=== PATIENT | female | born 1950 | race Caucasian/White ===

== ENCOUNTER 2016-10-25 08:51 | Inpatient (IN) ==
[2016-10-25] MEDS ORDERED: TYLENOL PO PRN (09:18)
[2016-10-25] MEDS ORDERED: ZOFRAN IV PRN (09:18)
[2016-10-25] MEDS ORDERED: CARDIZEM 100 MG/NS 100 MG/100 ML IVPB IV SCH (09:21)
[2016-10-25 09:38] LABS: HEMOGLOBIN 17.3 g/dL (12.0-16.0); MCH 29.8 PG (27-31); MCHC 35.3 g/dL (33-37); MCV 84.5 FL (81-99); MPV 11.3 FL (7.4-10.4); RBC 5.8 XMIL (4.2-5.4)
--- NOTE | 2016-10-25 09:40 | ED EKG INTERP ---
This chart was entered by Tori Blanco Scribe, acting as scribe for Silvestre Larose MD. EKG Interpretation - EKG Time of EKG reading by physician:: 09:02 EKG Read and Signed by:: Silvestre Larose EKG Interpretation (*Must complete 3 of following elements*): Abnormal Rate: 133 Rhythm: atrial fibrillation with rapid ventricular response Comments: rightward axis; nonspecific ST and T wave abnormality. Attestation - Physician/ JORGE Attestation Patient care was provided by Advanced Practice Provider:: No The physician spent face to face time with patient:: Yes Advanced Practice Provider documentation review:: Supervising physician onsite and consulted in the evaluation and care of this patient. The physician did have a face to face encounter with the patient. This chart was documented by the indicated scribe, (Tori Blnaco Scribe) and accurately reflects the services I performed and decisions made by me, Silvestre Larose MD, as attested by the provider's signature.
[2016-10-25 10:31] LABS: ALBUMIN 4.2 g/dL (3.5-5.0); CALCIUM 9.6 mg/dL (8.8-10.2); POTASSIUM 3.3 mmol/L (3.5-5.1); TOTAL BILIRUBIN 0.5 mg/dL (0.20-1.00); TOTAL PROTEIN 7.6 g/dL (6.3-8.3)
[2016-10-25] MEDS ORDERED: CARDIZEM IV ONE (10:39)
--- NOTE | 2016-10-25 11:06 | EKG Report ---
Test Performed on : 10/25/2016 09:02:43 AM Test Reason : sob Blood Pressure : / mmHG Vent. Rate : 133 BPM Atrial Rate : 129 BPM P-R Int : 000 ms QRS Dur : 082 ms QT Int : 280 ms P-R-T Axes : 000 093 053 degrees QTc Int : 416 ms Atrial fibrillation. with rapid ventricular response. Rightward axis Nonspecific ST and T wave abnormality Abnormal ECG When compared with ECG of 09-MAR-2016 12:50, Atrial fibrillation. has replaced Sinus rhythm. Vent. rate has increased BY 71 BPM Nonspecific T wave abnormality now evident in Lateral leads Unconfirmed Result
--- NOTE | 2016-10-25 11:21 | PROVIDER DOCUMENTATION ---
This chart was entered by Tori Blanco Scribe, acting as scribe for Silvestre Larose MD. HPI-Respiratory General - General Chief Complaint: Shortness of Breath Stated Complaint: SOB/COPD Time Seen by Provider: 10/25/16 09:06 Source: patient Allergies/Adverse Reactions: Patient Allergies Allergy/AdvReac Type Severity Reaction Status Date / Time No Known Allergies Allergy Verified 10/25/16 09:01 Home Medications: Home Medication List Medication Instructions Recorded Confirmed Last Taken Type Venlafaxine [Effexor] 37.5 mg PO QHS 04/19/15 01/30/16 01/30/16 17:00 History Albuterol Sulfate Inhaler 2 puff INH Q6H PRN PRN #1 inhaler 04/20/15 01/30/16 Unknown Rx [Ventolin Hfa] Codeine/Promethazine [Phenergan 10 ml PO TID PRN PRN #120 ml 01/30/16 Unknown Rx with Codeine] Doxycycline 100 mg PO BID #14 tablet 01/30/16 Unknown Rx Nicotine Patch [Nicoderm Patch] 21 mg TD DAILY PRN #30 patch.td24 01/30/16 Unknown Rx Prednisone 40 mg PO DAILY #10 tablet 01/30/16 Unknown Rx Hydrochlorothiazide 25 mg PO DAILY #30 tablet 03/09/16 Unknown Rx Venlafaxine HCl [Effexor Xr] 150 mg PO DAILY #30 cap.er.24h 09/05/16 Unknown Rx Amoxicillin [Amoxil] 500 mg PO BID #14 capsule 09/19/16 Unknown Rx - History of Present Illness-Resp Nature of Presenting Problem: Pt is 66 year old female presents to the ED with shortness of breath. Pt states shortness of breath has been present since last night. Pt states she is a chronic smoker. Pt states hx of COPD. Pt states home nebulizer. 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 Pt denies abdominal pain. Pt denies fever Quality of Pain: reports: tightness Severity in ED: reports: mild Onset/Duration: reports: last night Timing: reports: still present Exposure: reports: unknown cause Cough Quality/Degree: reports: no cough Current Respiratory Medication Therapy: Initiated see nurses note Modifying Factors: improves with: nothing Associated Symptoms: reports: heart racing, shortness of breath. denies: chest pain/soreness, cough, dizziness, earache, facial pain, fever/chills, flu-like symptoms, headache, hurts to breathe, hyperventilating, lightheadedness, muscle/ bodyaches, nasal congestion, nasal drainage, sinus pain, short of breath, sore throat, sweaty, wheezing Similar Symptoms Previously?: Yes (present since last night ) Recently seen or treated by another doctor?: No Review of Systems - Adult - REVIEW OF SYSTEMS - ADULT Constitutional: denies: chills, fever Eyes: denies: decreased vision, blurred vision, double vision Ears, Nose, Mouth & Throat: denies: ear pain, nose pain, throat pain Cardiovascular: reports: irregular heart rate (tachy). denies: chest pain, heart murmur, orthopnea Respiratory: reports: shortness of breath. denies: cough, wheezing Gastrointestinal: denies: abdominal pain, diarrhea, nausea, vomiting Genitourinary: denies: dysuria, flank pain, hematuria Musculoskeletal: denies: bone pain, joint pain, neck pain Integumentary: denies: hives, itching, rash Neurological: denies: dizziness/vertigo, headache/migraines, numbness, seizure, syncope Psychiatric: denies: anxiety, depression, suicidal thoughts Endocrine: reports: no symptoms reported Hematologic/Lymphatic: reports: no symptoms reported Allergic/Immunologic: reports: no symptoms reported All Other Systems: Reviewed and Negative Past History - Adult - PAST MEDICAL HISTORY-ADULT Review of Records: reports: Nursing Assessment Review, Medications Reviewed, Social history reviewed & non-contributory. Major Childhood Illnesses: reports: denies history Cardiovascular: reports: cardiac disease, HTN, hyperlipidemia, IA (4) Respiratory: reports: asthma, COPD Gastrointestinal: reports: denies history Obstetrical/Gynecological: reports: denies history Genitourinary: reports: denies history Musculoskeletal: reports: denies history Neurological: reports: CVA, Seizures/Epilepsy, TIA Psychiatric: reports: anxiety, depression Endocrine/Immune: reports: denies history Other Conditions: reports: denies history - PRIOR SURGERIES/PROCEDURES Surgical/Procedure History: reports: cardiac stent, - PRIOR HOSPITALIZATIONS Prior Hospitalizations: reports: for similar symptoms - IMMUNIZATION STATUS Childhood Immunizations: See Nurse Assessment Flu Vaccine: See Nurse Assessment - FAMILY HISTORY Family History: CAD over 55 yo - SOCIAL HISTORY Smoking: cigarettes, greater than 1 pack/day Provider spent 3-5 mins advising pt. on dangers of tobacco.: Discussed manners to quit use, and f/u contacts for add'l counseling. Substance Use: denies Living Situation: family Physical Exam-General - PHYSICAL EXAM-ADULT Initial Vital Signs Reviewed: Yes - CONSTITUTIONAL General Appearance: appears well, alert, no apparent distress. negative: lethargic, slow to respond - EYES Eyes: PERRL/EOMI, pink conjunctivae. negative: pale conjunctivae, sunken eyes - HEAD, EARS, NOSE, MOUTH & THROAT HENMT: normocephalic/atraumatic, moist mucous membranes, normal ENT inspection. negative: angioedema, hearing deficit - NECK Neck: non-tender, normal inspection. negative: lymphadenopathy, tender lateral - RESPIRATORY Respiratory: chest non-tender, decreased breath sounds, increased rate. negative: crackles, rhonchi - CARDIOVASCULAR Cardiovascular: normal peripheral pulses, tachycardia. negative: systolic murmur - GASTROINTESTINAL (ABDOMEN) Abdominal Exam: normal bowel sounds, non tender, soft. negative: distended, rebound - LYMPHATIC Lymphatic: no adenopathy. negative: enlargement, streaking - MUSCULOSKELETAL Back Exam: normal inspection. negative: ecchymosis, lordosis Extremity: normal range of motion, normal inspection. negative: deformity, erythema - SKIN Integumentary: normal color, normal turgor, warm/dry, other (generalized psoriasis). negative: ecchymosis, erythema - NEUROLOGIC Neurologic: grossly normal. negative: aphasia, facial droop - PSYCHIATRIC Psych/Mental Status: normal mood/affect, oriented x 3. negative: paranoid, tearful Progress - PLAN OF CARE/RESULTS Progress/Plan/Lab Results: Vital Signs - 8 hr 10/25/16 08:54 10/25/16 09:04 Temperature 96.9 F L Pulse Rate 130 H Respiratory Rate 28 H Blood Pressure 119/074 Laboratory Results - last 24 hr 10/25/16 10/25/16 10/25/16 09:15 09:15 09:15 WBC 7.44 RBC 5.80 H Hgb 17.3 H Hct 49.0 H MCV 84.5 MCH 29.8 MCHC 35.3 RDW Std Deviation 12.7 Plt Count 178 MPV 11.3 H Sodium 138 Potassium 3.3 L Chloride 97 L Carbon Dioxide 28 Anion Gap 13 BUN 21 Creatinine 1.2 H Estimated GFR/1.73 m2 45 BUN/Creatinine Ratio 18 Glucose 105 H Calculated Osmolality 279 Calcium 9.6 Magnesium Total Bilirubin 0.50 AST 24 ALT 19 Alkaline Phosphatase 126 H Creatine Kinase 100 Troponin T Total Protein 7.6 Albumin 4.2 Globulin 3.0 Albumin/Globulin Ratio 1.0 TSH 10/25/16 10/25/16 10/25/16 09:15 09:15 09:15 WBC RBC Hgb Hct MCV MCH MCHC RDW Std Deviation Plt Count MPV Sodium Potassium Chloride Carbon Dioxide Anion Gap BUN Creatinine Estimated GFR/1.73 m2 BUN/Creatinine Ratio Glucose Calculated Osmolality Calcium Magnesium 2.0 Total Bilirubin AST ALT Alkaline Phosphatase Creatine Kinase Troponin T < 0.010 Total Protein Albumin Globulin Albumin/Globulin Ratio TSH 0.37 Orders Category Date Time Status Admit - [facility] - [facility] Routine AdmDCTranf 10/25/16 09:18 Ordered Activity - Up with Assistance ORDERED Care 10/25/16 09:18 Active Daily Weights QDAY ASSESS Care 10/25/16 09:18 Active Intake and Output-Strict ORDERED Care 10/25/16 09:18 Active Notify MD if DIRECTED Care 10/25/16 09:18 Active Old records/chart to unit .From other facility Care 10/25/16 09:18 Active Vital Signs Order Q 4-HR ASSESS Care 10/25/16 09:18 Active Z-Document. for Tele Applied ORDERED Care 10/25/16 09:20 Active Heart Healthy Diet Diet 10/25/16 09:19 Active CHEST-2 VIEWS [RAD] Stat Exams 10/25/16 09:19 Taken CBC WITH NO DIFF [HEME] Routine Lab 10/26/16 06:00 Ordered CBC WITH NO DIFF [HEME] Stat Lab 10/25/16 09:15 Completed CK PROFILE [SP CHEM] Q8H Lab 10/25/16 09:15 Completed CK PROFILE [SP CHEM] Q8H Lab 10/25/16 17:30 Ordered CK PROFILE [SP CHEM] Q8H Lab 10/26/16 01:30 Ordered COMPREHENSIVE METABOLIC PANEL [CHEM] Routine Lab 10/26/16 06:00 Ordered COMPREHENSIVE METABOLIC PANEL [CHEM] Stat Lab 10/25/16 09:15 Completed LIPID PROFILE W/CALC LDL [LIPIDS] Routine Lab 10/26/16 06:00 Ordered MAGNESIUM [CHEM] Routine Lab 10/25/16 09:15 Completed TROPONIN T Q8H Lab 10/25/16 09:15 Completed TROPONIN T Q8H Lab 10/25/16 17:30 Ordered TROPONIN T Q8H Lab 10/26/16 01:30 Ordered TSH Routine Lab 10/25/16 09:15 Completed Acetaminophen [Tylenol] Med 10/25/16 09:18 Active 650 mg PO Q6H PRN PRN Aspirin Med 10/25/16 09:30 Active 81 mg PO DAILY Diltiazem 100 mg/Ns [Cardizem 100 mg/Ns] Med 10/25/16 09:21 Active 100 mg in 100 ml IV Per Protocol Enoxaparin [Lovenox] Med 10/25/16 09:30 Active 40 mg SUBQ Q24H Ondansetron [Zofran] Med 10/25/16 09:18 Active 4 mg IV Q4H PRN PRN Zolpidem [Ambien] Med 10/25/16 09:18 Active 5 mg PO HS PRN PRN Oxygen Device Routine Oth 10/25/16 09:18 Active Pulse Oximetry Routine Oth 10/25/16 09:18 Active Telemetry [OM.EQ] Routine Oth 10/25/16 09:18 Active Limited Echocardiogram Routine Ther 10/25/16 09:18 Ordered Transfer/Admit Order [TRANSFER] Routine Transfer 10/25/16 09:23 Ordered Result Diagrams: 10/25/16 09:15 10/25/16 09:15 - XRAY 1 XRAY Study: Chest Impression: Normal XRAY Interpretation: negative per Dr. Larose Departure - Departure Date of Disposition Decision: 10/25/16 Time of Disposition Decision: 10:03 DIAGNOSIS: Afib Disposition: ADMITTED INPATIENT 09 Certified Medical Emergency: Emergent Condition: Stable - Critical Care Note This patient required my direct & personal management of CC.: Yes Total Time (mins): 30 Critical Care Statement: This patient required my direct personal management to treat or rule out processes, the absence of which, could potentiallly result in sudden, clinically significant life or limb threatening deterioration. Attestation - Physician/ JORGE Attestation Patient care was provided by Advanced Practice Provider:: No The physician spent face to face time with patient:: Yes Advanced Practice Provider documentation review:: Supervising physician onsite and consulted in the evaluation and care of this patient. The physician did have a face to face encounter with the patient. This chart was documented by the indicated scribe, (Tori Blanco, David) and accurately reflects the services I performed and decisions made by me, Silvestre Larose MD, as attested by the provider's signature.
[2016-10-25] MEDS: LOVENOX SUBQ SCH (11:30)
--- NOTE | 2016-10-25 11:46 | HISTORY AND PHYSICAL ---
CHIEF COMPLAINT: Shortness of breath, elevated heart rate. HISTORY OF PRESENT ILLNESS: The patient is a 66-year-old female who presented to [facility] ER secondary to increased heart rate, increased shortness of breath and dyspnea on exertion. Notes that the symptoms continued to worsen and have been going on for less than a day. Notes that her heart rate has been racing. She states that she was told recently that her blood pressure was elevated and was given medication, but stated she felt nauseated on it, so she has taken it. She also has not followed up in the office to get the medication changed. The medicine apparently was started on her last ER visit in September. ALLERGIES: No known drug allergies. MEDICATIONS: Effexor, albuterol. She has recently been on doxycycline, hydrochlorothiazide 25, presumably this is the medication that she stopped. REVIEW OF SYSTEMS: Patient notes she has recently had tooth pain and this is the reason for her ER visit and antibiotics. She stopped her blood pressure medication that was stopped in the ER because she felt nauseated and "did not feel right." Notes that she has pain is better, however now she is having chest pain, palpitations, and skipped heartbeat and states that her heart rate has been racing. She denies any fevers or chills. Denies dysuria, frequency, urgency. Denies any polyuria or polydipsia. Denies any skin rashes weight loss or weight gain. Denies any melena or hematochezia. PAST MEDICAL HISTORY: COPD, hypertension, hyperlipidemia. She has had an PR in the past,a history of seizures, anxiety, depression, CVA. Patient denies a history of atrial fibrillation although the record notes in 2014, she was admitted to the hospital for atrial fibrillation. She has had cardiac stenting in the past. FAMILY HISTORY: Noncontributory. SOCIAL HISTORY: Patient lives at home. She continues to smoke approximately a pack a day. Denies any alcohol use or other illicit drug use. PHYSICAL EXAMINATION: VITAL SIGNS: Reviewed. Blood pressure is stable at 120s to 130s systolic, heart rate is elevated at 130s to 140 and irregular, respiratory 18. GENERAL: Patient is awake and alert. She is currently in mild distress secondary to her heart rate. She is in no respiratory distress. She is awake, alert, oriented and pleasant to talk with. NECK: Supple. CV: Regular rate. CHEST: Relatively clear. ABDOMEN: Soft. EXTREMITIES: Moves all extremities. NEUROLOGIC: No focal changes. SKIN: Warm, dry with no rashes. LABS: Currently pending. ASSESSMENT: 1. Atrial fibrillation with rapid ventricular response. 2. Hypertension with medical noncompliance. 3. Chronic tobacco abuse. 4. Chronic anxiety and depression. 5. Known coronary artery disease. 6. History of chronic obstructive pulmonary disease. 7. History of cerebrovascular accident. 8. History of seizures. PLAN: We will admit the patient to the hospital. Discussed with her the perils of smoking as well as ways to stop. Discussed with her atrial fibrillation and treatment. We will rule out for an PR, placed in the ICU on Cardizem drip. Further orders as needed. cc: Angel Carlos MD
[2016-10-25] MEDS: ASPIRIN PO SCH (12:00)
--- NOTE | 2016-10-25 13:21 | Diag Imaging Result Doc PS360 ---
EXAM: CHEST-2 VIEWS INDICATION: AMI/Chest Pain TECHNIQUE: 2 views COMPARISON: 03/09/2016 FINDINGS: There are couple nodules projecting of the left lower lung zone that appear stable. The largest projects behind the left heart border. The lungs are clear, otherwise. There is no discrete pleural fluid collection or pneumothorax. The cardiomediastinal silhouette and central vasculature are grossly unremarkable. IMPRESSION: Nonspecific stable left lower lung zone nodules as described. Continued surveillance is recommended. Electronically signed by Pk Delacruz 10/25/2016 1:19 PM
[2016-10-25] MEDS ORDERED: KLOR-CON PO ONE (17:48)
[2016-10-25] MEDS: ATIVAN IV PRN (18:03)
[2016-10-26 03:55] LABS: HEMATOCRIT 45.5 % (37.0-47.0); HEMOGLOBIN 15.8 g/dL (12.0-16.0); MCH 29.8 PG (27-31); MCHC 34.7 g/dL (33-37); MCV 85.7 FL (81-99); MPV 10.7 FL (7.4-10.4); RBC 5.31 XMIL (4.2-5.4)
[2016-10-26 04:34] LABS: AGAP 14; ALBUMIN 3.9 g/dL (3.5-5.0); ALKALINE PHOSPHATASE 106 U/L (32-104); BUN 27 mg/dL (8-22); CHLORIDE 103 mmol/L (98-107); COSMO 284; GOT 13 U/L (10-30); GPT 13 U/L (10-36); HDL 58 mg/dL (45-65); LDL 139 mg/dL; POTASSIUM 4.4 mmol/L (3.5-5.1); SODIUM 139 mmol/L (136-145); TCO2 23 mmol/L (25-35); TOTAL PROTEIN 6.4 g/dL (6.3-8.3); TRIGLYCERIDES 94 mg/dL (35-135); VLDL 19 mg/dL
[2016-10-26] MEDS: LOVENOX SUBQ SCH (09:12)
[2016-10-26] MEDS: ASPIRIN PO SCH (09:12)
[2016-10-26] MEDS: ATIVAN IV PRN (12:40)
[2016-10-26] MEDS: CARDIZEM PO SCH ×2 (12:40→20:55)
[2016-10-26] MEDS ORDERED: NORCO-7.5 PO PRN (15:15)
--- NOTE | 2016-10-26 15:35 | ECHO REPORT ---
ORDER DATE: 10/25/2016 INDICATION: Atrial fibrillation. FINDINGS: 1. The right atrium appears normal in size. 2. Mild tricuspid regurgitation. RV systolic pressure of 26. This was on a measurement on an extremely poor jet of tricuspid regurgitation. 3. Normal RV size and systolic function. 4. No significant pulmonic insufficiency. 5. Mild left atrial enlargement at 4.6 cm. 6. No evidence of mitral valve prolapse. There does appear to be some restriction in motion of the mitral leaflets. Mild mitral regurgitation is noted. Measurement of the mitral gradient demonstrates a peak of 6.8 with a mean of 2.5. The valve area by pressure half-time was denoted at 1 cm2 with a planimetry area of 1.2. Previously in April 2014 the peak and mean gradient across the valve was 22 and 14 with a valve area measured between 1.2 and 1.4. Patient may need further evaluations of the mitral valve considering the degree of stenosis noted 2 years ago and some difficulty in measurement at this point. 7. Left ventricle appears normal in size. Normal LV wall thicknesses with a posterior and interventricular septal wall thickness 1.1 cm each. I believe the LV systolic function is mildly reduced on the order of 45%. This is somewhat difficult measurement to make considering the patient's atrial fibrillation. 8. Aortic valve appears to open reasonably well on 2-dimensional imaging. Peak and mean gradient across valve are 20 and 10. I do not believe there is any significant degree of aortic stenosis. There is mild aortic insufficiency. 9. Aorta appears normal visualized segments. 10. No pericardial effusion seen. cc: MD Angel Flores MD
--- NOTE | 2016-10-26 19:17 | PROGRESS NOTE ---
DATE: 10/26/2016 SUBJECTIVE: Patient denies any current complaints. States that she is feeling much better. Still having some palpitations but nothing like she was when she came to the hospital. Denies any chest pain. Denies any shortness of breath, GI or issues. OBJECTIVE: Vital Signs: Reviewed. Heart rate is 70 but irregular. Blood pressure is stable. She is afebrile. Respiratory 20. General: Patient is awake, alert. She is in no respiratory distress. Pleasant to talk with. Neck: Supple. Cardiovascular: Irregular rhythm but rate controlled. Abdomen: Soft. Extremities: Moves all extremities. Chest: Clear. Neurologic: No changes. DIAGNOSTIC DATA: CBC and CMP reviewed. Troponin and CPKs are negative. ASSESSMENT: Atrial fibrillation with rapid ventricular response. Currently still in atrial fibrillation but rate controlled. We will stop Cardizem drip. Place her on p.o. Cardizem 30 three times a day. We will transfer to the floor. Hopefully home in the a.m. on Cardizem CD 120. cc: Angel Carlos MD
[2016-10-26] MEDS: EFFEXOR XR PO SCH (20:55)
[2016-10-26] MEDS: AMBIEN PO PRN (22:32)
--- NOTE | 2016-10-27 03:37 | EKG Report ---
Test Performed on : 10/27/2016 03:06:23 AM Test Reason : cp Blood Pressure : / mmHG Vent. Rate : 134 BPM Atrial Rate : 104 BPM P-R Int : 000 ms QRS Dur : 082 ms QT Int : 270 ms P-R-T Axes : 000 083 -35 degrees QTc Int : 403 ms Atrial fibrillation. with rapid ventricular response. Abnormal QRS-T angle, consider primary T wave abnormality Abnormal ECG No previous ECGs available Confirmed by Silvestre Larose MD ([id number]) on 11/12/2016 7:07:02 PM
[2016-10-27] MEDS ORDERED: CARDIZEM 100 MG/NS 100 MG/100 ML IVPB IV SCH (04:01)
[2016-10-27] MEDS: CARDIZEM 100 MG/NS 100 MG/100 ML IVPB ONE ×2 (04:20→04:26)
[2016-10-27] MEDS: CARDIZEM PO SCH ×3 (05:16→20:17)
[2016-10-27] MEDS: ASPIRIN PO SCH (08:43)
[2016-10-27] MEDS: LOVENOX SUBQ SCH ×2 (08:43→18:26)
[2016-10-27] MEDS ORDERED: HYDROCHLOROTHIAZIDE PO SCH (09:00)
[2016-10-27] MEDS ORDERED: LOVENOX SUBQ SCH (15:00)
[2016-10-27] MEDS ORDERED: CARDIZEM PO ONE (15:00)
[2016-10-27 15:41] LABS: INR 0.91 (0.86-1.15)
--- NOTE | 2016-10-27 16:25 | PROGRESS NOTE ---
DATE: 10/27/2016 SUBJECTIVE: The patient continues having palpitations. They have decreased. She denies any chest pain, shortness of breath, syncope, dizziness. OBJECTIVE: Vital Signs: Blood pressure is 106/87 with a heart rate of 94, respirations are 18, temperature is 98 degrees with oxygen saturations of 98-100% on 2 L nasal cannula. General: Ms Yost is sitting up in bed awake and alert in no distress. Cardiovascular : Irregularly irregular rhythm with rate controlled. Pulmonary: Breath sounds are clear with no increased work of breathing noted. Gastrointestinal: Abdomen soft, nontender, nondistended with bowel sounds in all 4 quadrants. Extremities: No clubbing, cyanosis, or edema. Calves are nontender. Pulses are palpable x4. ASSESSMENT: Atrial fibrillation with rapid ventricular response. She is currently in atrial fibrillation but with rate controlled. We will continue her current regimen. Cardizem has been increased to 60 mg every 8 hours per cardiology Dictated by MARY Mckeon for Angel Carlos MD cc: MARY Mckeon MD [facility]
--- NOTE | 2016-10-27 18:52 | CONSULTATION ---
DATE OF CONSULTATION: 10/27/2016 IMPRESSION: 1. Newly diagnosed atrial fibrillation with rapid ventricular rate. Rate still mild-to- moderately elevated despite current diltiazem. 2. Rheumatic mitral valve disease. A. Status post previous mitral valve balloon valvuloplasty December 2003. B. At least moderate to severe mitral stenosis currently. 3. Atherosclerotic coronary disease. Patient is status post previous non ST elevation myocardial infarction in August 2011 and subsequently underwent angioplasty/stenting of right coronary artery with drug-eluting stent. 4. Dyslipidemia. 5. Chronic ongoing cigarette use at a rate of 1-1/2 pack cigarettes per day. 6. Depression. 7. Previous cerebrovascular accident August 2012 according to records. 8. Poor compliance with cardiology follow up. RECOMMENDATIONS: 1. Augment rate control with increase in diltiazem orally. 2. Anticoagulate. Will initiate Lovenox and transition to warfarin. 3. The patient ultimately may benefit from more definitive evaluation of her mitral valve disorder with transesophageal echocardiography and possibly right and left heart catheterization. 4. Smoking cessation strongly advised. HISTORY: This 66-year-old white female with past history of rheumatic mitral valve disorder, atherosclerotic coronary disease, dyslipidemia and chronic ongoing cigarette use, as well as previous cerebrovascular accident, was admitted over this past weekend with acute dyspnea and palpitations. She was found to be in atrial fibrillation with rapid ventricular rate. She has been started on diltiazem, which has improved, but not completely controlled her heart rate. She denies any chest pain. She has had tendency for exertional shortness of breath and orthopnea for the past year. She has not seen her hospital aide in almost 2 years. She abruptly started having suddenly worse exertional dyspnea where she could barely walk across the room with associated tachy palpitations. There has been no peripheral swelling. She still smokes a pack and a half of cigarettes per day. She is not aware of any previous atrial fibrillation or palpitations in the past. PAST MEDICAL HISTORY: 1. Rheumatic mitral valve disorder as outlined above. 2. Atherosclerotic coronary disease as outlined above. 3. Dyslipidemia. 4. Depression. 5. Previous cerebrovascular accident involving right hemisphere in August 2012. ALLERGIES: She is allergic or intolerant to beta blockers, which reportedly cause wheezing. MEDICATIONS: Prior to admission as listed. It is noteworthy that she has not been on anti- platelet therapy nor anticoagulation prior to admission. SOCIAL HISTORY: She is . She smokes a pack and a half of cigarettes per day. FAMILY HISTORY: Positive for coronary disease. REVIEW OF SYSTEMS: Pulmonary noteworthy for exertional dyspnea and orthopnea. There has been some chronic nonproductive cough. Gastrointestinal: Negative. Constitutional: Negative. Remainder review of systems negative/noncontributory with 14 total systems reviewed. PHYSICAL EXAMINATION: General: Reveals a pleasant, older, white female, in no distress. Vital signs: Heart rate 110 to 120 beats per minute with ECG monitor showing atrial fibrillation and rapid ventricular rate. Blood pressure 104/82. Oxygen saturation 95%. HEENT Examination: Extraocular movements appear intact. Mucous membranes are moist. Neck: Supple without discernible jugular distention. Chest: Clear to auscultation with somewhat diminished breath sounds diffusely. Cardiac Exam: Reveals an irregular rate and rhythm without appreciable murmur or gallop. Abdomen: Soft, nontender. Bowel sounds are normal. Extremities: Without edema. Neurologic Exam: Reveals her to be alert and fully oriented. Speech is fluent. She moves all 4 extremities equally well. Skin: Warm and dry. Psych exam reveals her mood to be appropriate. DIAGNOSTIC DATA: ECG demonstrates atrial fibrillation with rapid ventricular response and nonspecific T-wave abnormality. cc: MD Angel Nicole MD
[2016-10-27] MEDS: EFFEXOR XR PO SCH (20:17)
[2016-10-27] MEDS: COUMADIN PO SCH (20:17)
[2016-10-27] MEDS: AMBIEN PO PRN (21:57)
--- NOTE | 2016-10-28 03:54 | PROGRESS NOTE ---
DATE: 10/27/2016 ADDENDUM: SUBJECTIVE: Patient seen and examined. Care plan discussed with nurse practitioner. The patient notes was doing well most of the day yesterday ate fine last night, had increased heart rate to 130s, 140s and therefore she was moved back to the ICU. OBJECTIVE: Vital Signs: Reviewed. She is awake, alert, oriented. She is currently in no respiratory distress. Speech is regular. Memory is intact. Neck: Supple. CV: Regular rate. Chest: Relatively clear. Abdomen: Soft. Extremities: Moves all extremities. Neuro: No focal neurological change. Skin: Warm and dry, no rashes. ASSESSMENT: Atrial fibrillation with rapid ventricular response currently on Cardizem. Will attempt to convert back to p.o. Cardizem q.6 hours. Consult Cardiology, further orders as needed. cc: Angel Carlos MD
[2016-10-28] MEDS: CARDIZEM PO SCH ×3 (05:07→20:27)
[2016-10-28] MEDS: LOVENOX SUBQ SCH ×2 (05:08→18:20)
[2016-10-28] MEDS: ASPIRIN PO SCH (08:14)
--- NOTE | 2016-10-28 16:49 | PROGRESS NOTE ---
DATE: 10/28/2016 SUBJECTIVE: The patient has no complaints. She has moved out to the floor. She is moving around more with no palpitations, chest pain, syncope. OBJECTIVE: Vital Signs: Blood pressure is 143/92, with a heart rate of 94, respirations are 18, temperature is 97.8 degrees oral, with room air saturations are 95 to 98%. General: This is a 66- year-old female who is sitting up in the bed, awake and alert, with no complaints. Cardiovascular: Irregular rate and rhythm. S1 and S2 appreciated. Pulmonary: Breath sounds are clear with no increased work of breathing noted. Gastrointestinal: Abdomen is soft, nontender, nondistended with bowel sounds in all 4 quadrants. Extremities: No clubbing, cyanosis, or edema. Calves are nontender. Pulses are palpable x4. Neurologic: She is alert and oriented x3. Cranial nerves 2 through 12 grossly intact. LABS: INR is 0.91. ASSESSMENT: 1. Atrial fibrillation with rate controlled in the 90s. 2. Anticoagulation. PLAN: Warfarin was started. We will trend daily INRs with a target INR of 2-3. We will continue Lovenox until she is therapeutic. Dictated by MARY Mckeon for Angel Carlos MD cc: MARY Mckeon MD
[2016-10-28] MEDS: COUMADIN PO SCH (20:27)
[2016-10-28] MEDS: EFFEXOR XR PO SCH (20:27)
[2016-10-28] MEDS: AMBIEN PO PRN (20:30)
[2016-10-29] MEDS: CARDIZEM PO SCH (04:03)
[2016-10-29] MEDS: LOVENOX SUBQ SCH ×2 (05:10→18:18)
[2016-10-29] MEDS: CARDIZEM CD PO SCH (08:55)
[2016-10-29] MEDS: ASPIRIN PO SCH (08:56)
--- NOTE | 2016-10-29 19:56 | PROGRESS NOTE ---
DATE: 10/29/2016 SUBJECTIVE: Patient notes that she is feeling fine. Denies any chest pain, palpitations currently. She states that she is wanting to go home. Denies any GI or issues. OBJECTIVE: Vital Signs: Reviewed. General: She is pleasant to talk with. Neck: Supple. Cardiovascular: Regular rate, irregular rhythm. Chest: Clear. Abdomen: Soft. Extremities: Moves all extremities. Neurologic: No changes. ASSESSMENT: 1. Atrial fibrillation, with rapid ventricular response. Currently, rate controlled on Cardizem CD 180. 2. INR 1.0. PLAN: Again, discussed with patient the perils of smoking, as well as ways to stop. We will continue in the hospital on Lovenox until INR is greater than 2. We will continue Cardizem CD. Further orders as needed. cc: Angel Carlos MD
[2016-10-29] MEDS: EFFEXOR XR PO SCH (20:48)
[2016-10-29] MEDS: COUMADIN PO SCH (20:49)
[2016-10-29] MEDS: AMBIEN PO PRN (20:51)
[2016-10-30] MEDS: LOVENOX SUBQ SCH ×2 (05:03→17:51)
[2016-10-30 06:25] LABS: INR 1.11 (0.86-1.15); PROTIME 15.2 Seconds (12.1-15.5)
[2016-10-30] MEDS: ASPIRIN PO SCH (08:37)
[2016-10-30] MEDS: CARDIZEM CD PO SCH (08:37)
--- NOTE | 2016-10-30 20:05 | PROGRESS NOTE ---
DATE: 10/30/2016 SUBJECTIVE: The patient is without any complaints. She states that she is feeling fine and slept much better. She is ambulating in the brady without any difficulty. OBJECTIVE: Vital Signs: Reviewed. She is afebrile. Heart rate 75-110 and irregular. Respiratory 20. General: Patient is awake and alert. She is in no respiratory distress. Pleasant to talk with. Neck: Supple. Cardiovascular: Irregular rhythm but rate controlled for the most part. She does elevate sometimes when she is up ambulating. Chest clear. Abdomen: Soft. Extremities: Moves all extremities. Neurologic: No focal changes. Skin: Warm and dry. No rashes. ASSESSMENT: Atrial fibrillation with rapid ventricular response currently rate controlled on Cardizem CD. Will continue this until her INR is greater than 2, and then will discharge her home. cc: Angel Carlos MD
[2016-10-30] MEDS: EFFEXOR XR PO SCH (20:56)
[2016-10-30] MEDS: AMBIEN PO PRN (20:56)
[2016-10-30] MEDS: COUMADIN PO SCH (20:56)
[2016-10-31] MEDS: LOVENOX SUBQ SCH (05:08)
[2016-10-31 07:25] VITALS: BP 146/82
[2016-10-31 07:49] LABS: INR 2.02 (0.86-1.15); PROTIME 24.5 Seconds (12.1-15.5)
[2016-10-31] MEDS: ASPIRIN PO SCH (09:11)
[2016-10-31] MEDS: CARDIZEM CD PO SCH (09:11)
[2016-10-31] MEDS ORDERED: COUMADIN PO SCH ×2 (21:00)
--- NOTE | 2016-11-01 14:17 | DISCHARGE SUMMARY ---
ADMISSION DATE: 10/25/2016 DISCHARGE DATE: 10/31/2016 DISCHARGE DIAGNOSES: 1. Atrial fibrillation with rapid ventricular response, resolved. 2. Hypertension with chronic medical noncompliance. 3. Chronic tobacco abuse. 4. Chronic anxiety and depression. 5. Coronary artery disease. 6. Chronic obstructive pulmonary disease. 7. History of seizures after a previous cerebral vascular accident. CONSULTATIONS: None. PROCEDURES: None. BRIEF HOSPITAL COURSE: Patient is a 66-year-old female who presented to the hospital subsequently diagnosed with atrial fibrillation with rapid ventricular response. Her medications were adjusted, she was placed on Cardizem drip which she tolerated well and was converted over to p.o. Cardizem, and has been on Cardizem CD 180 for the past few days. She was started on Coumadin by Cardiology. Now that her INR is greater than 2, she will be discharged home. DISPOSITION: The patient will be discharged home. Discussed with her the perils of smoking. Discussed with her the need for compliance medication-nieves and diet nieves. She will follow up in the office in 1-2 weeks, sooner should symptoms worsen or return. TIME SPENT: 35 minutes was spent in total care. cc: Angel Carlos MD
== END 2016-10-31 11:33 | disposition home or self-care (01) ==
LOC: P.ED 08:51 → P.ICU 09:51 → P.MEDSURG 10-26 15:25 → P.ICU 10-27 03:47 → P.MEDSURG 10-28 10:42
PROVIDERS: ADMIT Family Medicine; ATTEND Family Medicine